=== PATIENT | male | born 1945 | race Caucasian/White ===

== ENCOUNTER 2022-11-10 10:21 | Emergency (ER) | payer OTHER ==
[~2022-11-10] VITALS: Ht 172.7 cm; Wt 99.8 kg
[2022-11-10] MEDS ORDERED: HYDRODIURIL12.5 MG (10:33)
[2022-11-10] MEDS ORDERED: AMLODIPINE BESYL5 MG (10:34)
[2022-11-10] MEDS ORDERED: ZESTRIL20 MG (10:34)
[2022-11-10] MEDS ORDERED: ACID REDUCER10 MG (10:34)
[2022-11-10] MEDS ORDERED: PRAVASTATIN SOD10 MG (10:34)
[2022-11-10] MEDS ORDERED: EZETIMIBE10 MG (10:34)
[2022-11-10] MEDS ORDERED: TOPROL XL25 M1 (10:35)
[2022-11-10] MEDS ORDERED: JANTOVEN5 MG (10:35)
[2022-11-10] MEDS ORDERED: ASA81 MG (10:35)
[2022-11-10] MEDS ORDERED: WARFARIN SODIU2.5 MG (10:35)
== END 2022-11-10 13:38 | disposition home or self-care (01) ==
LOC: ER 10:21
DX: N50.812 Left testicular pain (principal); N45.1 Epididymitis; Z85.46 Personal history of malignant neoplasm of prostate